=== PATIENT | male | born 1990 | race Caucasian/White ===

== ENCOUNTER 2017-04-15 08:23 | Emergency (ER) | payer MEDICAID, OTHER ==
[~2017-04-15] VITALS: Ht 182.9 cm; Wt 119.5 kg
[~2017-04-15 08:23] MED LIST: HC1C30 TOP
[2017-04-15 08:26] VITALS: Ht 182.9 cm; Wt 119.5 kg
--- NOTE | 2017-04-15 08:46 | ERD ---
ER Documentation Chief Complaint Date/Time DATE: 04/15/17 TIME: 08:42 Chief Complaint vomit this morning, + nausea HPI This is a 26-year-old male presenting to the emergency department for nausea and vomiting starting this morning. Patient states he woke up and had 3 episodes of emesis. Patient states he had yellow clear emesis with "small streaks" of blood. Patient states he is unsure if this is blood. Patient states there are small streaks of light pink. Patient states he ate hot cheetos and watermelon last night before bed. Patient denies feeling nauseas or having pain last night. Patient denies abdominal pain. Currently denies nausea. Patient states he was feeling somewhat dizzy however that has resolved now. ROS All systems reviewed and are negative except as per history of present illness. Medications Home Meds Active Scripts Ondansetron Hcl* (Zofran*) 4 Mg Tablet, 4 MG PO Q6H for NAUSEA AND/OR VOMITING, #10 TAB Prov:KO CANDELARIO NP 04/15/17 Hydrocortisone* Topical (Hydrocortisone* Topical) 1%-28.35 Gm Cream..g., 1 APPLIC TOP BID Y for ITCHING, #1 TUB Prov:SHA MAGANA 04/01/15 Allergies Allergies: Coded Allergies: No Known Allergy (Unverified , 04/15/17) PMhx/Soc Medical and Surgical Hx: pt denies Medical Hx, pt denies Surgical Hx History of Surgery: No Anesthesia Reaction: No Hx Neurological Disorder: No Hx Respiratory Disorders: No Hx Cardiac Disorders: Yes (HEART MURMUR) Hx Psychiatric Problems: No Hx Miscellaneous Medical Probl: No Hx Alcohol Use: Yes Hx Substance Use: No Hx Tobacco Use: No Physical Exam Vitals Vital Signs Date Time Temp Pulse Resp B/P Pulse Ox O2 Delivery O2 Flow Rate FiO2 04/15/17 08:26 97.5 75 18 139/87 99 Physical Exam Const: No acute distress, alert Head: Atraumatic Eyes: Normal Conjunctiva ENT: Normal External Ears, Nose and Mouth. No erythema or exudates posterior pharynx. Neck: Full range of motion..~ No meningismus. Resp: Clear to auscultation bilaterally Cardio: Regular rate and rhythm, no murmurs Abd: Soft, non tender, non distended. Normal bowel sounds Skin: No petechiae or rashes Back: No midline or flank tenderness Ext: No cyanosis, or edema Neur: Awake and alert Psych: Normal Mood and Affect Result Diagram: 04/15/17 0850 04/15/17 0850 Results 24 hrs Laboratory Tests Test 04/15/17 08:50 White Blood Count 6.010^3/ul Red Blood Count 5.4110^6/ul Hemoglobin 15.6g/dl Hematocrit 45.6% Mean Corpuscular Volume 84.3fl Mean Corpuscular Hemoglobin 28.8pg Mean Corpuscular Hemoglobin Concent 34.2g/dl Red Cell Distribution Width 12.8% Platelet Count 56579^3/UL Mean Platelet Volume 11.7fl Neutrophils % 62.8% Lymphocytes % 25.5% Monocytes % 9.9% Eosinophils % 0.8% Basophils % 0.7% Nucleated Red Blood Cells % 0.0/100WBC Neutrophils # 3.710^3/ul Lymphocytes # 1.510^3/ul Monocytes # 0.610^3/ul Eosinophils # 0.110^3/ul Basophils # 0.010^3/ul Nucleated Red Blood Cells # 0.010^3/ul Sodium Level 144mmol/L Potassium Level 4.4mmol/L Chloride Level 100mmol/L Carbon Dioxide Level 29mmol/L Anion Gap 19 Blood Urea Nitrogen 11mg/dl Creatinine 0.89mg/dl Glucose Level 105mg/dl Calcium Level 9.6mg/dl Current Medications Medications (Trade) Dose Ordered Sig/Tyler Route PRN Reason Start Time Stop Time Status Last Admin Dose Admin Ondansetron HCl (Zofran Tab) 4 mg ONCE ONCE PO 04/15/17 09:00 04/15/17 09:08 DC Famotidine (Pepcid) 20 mg ONCE ONCE PO 04/15/17 09:00 04/15/17 09:01 DC 04/15/17 09:10 Ondansetron HCl (Zofran Odt) 4 mg ONCE STAT ODT 04/15/17 09:07 04/15/17 09:08 DC 04/15/17 09:10 Procedures/[place] [id number] Radiology Main Line: [phone] DIAGNOSTIC IMAGING REPORT Patient: JENNIFER REYES : 1990 Age: 26 Sex: M MR #: [id number] [facility] #: [id number] DOS: 04/15/17 1013 Ordering MD: KO CANDELARIO NP Location: [facility] Room/Bed: PROCEDURE: XR Chest. CLINICAL INDICATION: chest pain, cough TECHNIQUE: Single frontal view of the chest was obtained COMPARISON: None FINDINGS: The heart and mediastinum are within normal limits. The lungs are clear. There is no pleural effusion or pneumothorax. RPTAT: AA IMPRESSION: No acute disease. MDM: This is a 26-year-old male presenting to emergency department for nausea and vomiting starting earlier today. Patient states he is not feeling nauseous at this moment. No active vomiting while in the ED. Patient is afebrile upon arrival to ED. No abdominal pain. Patient had 3 episodes of nonbloody nonbilious emesis earlier today. Patient has not been able to eat or drink anything today. While in ED, patent given Zofran and Pepcid p.o. Labs unremarkable. At discharge, patient reports he's had a "smoker's cough" for the past 6 months, especially in the morning. Patient denies smoking and states he would like a chest x-ray. Lung sounds clear. No cough while in the ED. No s/s of respiratory distress. Chest x-ray reviewed by radiologist as unremarkable. Low suspicion for acute bacterial infection. Patient likely has viral gastroenteritis. Patient is appropriate for outpatient management and instructed to follow up with PCP in the next 2-3 days for reassessment. Return to ED for any new or worsening symptoms. Patient verbalizes understanding. All questions answered at discharge. Departure Diagnosis: Primary Impression: Vomiting Vomiting type: unspecified Vomiting Intractability: non-intractable Nausea presence: with nausea Qualified Code: R11.2 - Non-intractable vomiting with nausea, unspecified vomiting type Condition: Stable KO CANDELARIO NP Apr 15, 2017 08:46
[2017-04-15 08:58] LABS: BASOPHILS % 0.7 % (0.0-2.0); EOSINOPHILS # 0.1 10^3/ul (0.0-0.5); EOSINOPHILS % 0.8 % (0.0-7.0); HEMATOCRIT 45.6 % (42.0-52.0); HEMOGLOBIN 15.6 g/dl (14.0-18.0); LYMPHOCYTES # 1.5 10^3/ul (0.8-2.9); LYMPHOCYTES % 25.5 % (15.0-51.0); MEAN CORPUSCULAR HEMOGLOBIN 28.8 pg (29.0-33.0); MEAN CORPUSCULAR HGB CONC 34.2 g/dl (32.0-37.0); MEAN CORPUSCULAR VOLUME 84.3 fl (82.0-101.0); MEAN PLATELET VOLUME 11.7 fl (7.4-10.4); MONOCYTE # 0.6 10^3/ul (0.3-0.9); MONOCYTES % 9.9 % (0.0-11.0); NEUTROPHIL # 3.7 10^3/ul (1.6-7.5); NEUTROPHILS % 62.8 % (39.0-77.0); PLATELET COUNT 209 10^3/UL (140-415); RED BLOOD COUNT 5.41 10^6/ul (4.70-6.10); RED CELL DISTRIBUTION WIDTH 12.8 % (11.5-14.5)
[2017-04-15] MEDS ORDERED: ONDANSETRON 4 MG TAB PO ONE (09:00)
[2017-04-15] MEDS ORDERED: FAMOTIDINE 20 MG TAB PO ONE (09:00)
[2017-04-15] MEDS ORDERED: ONDANSETRON (ODT) 4 MG TAB ODT STA (09:07)
[2017-04-15 09:41] LABS: CALCIUM 9.6 mg/dl (8.4-10.2); CREATININE 0.89 mg/dl (0.61-1.24); POTASSIUM 4.4 mmol/L (3.5-5.1)
[2017-04-15] MEDS ORDERED: ONDA4TAB8 PO (10:07)
--- NOTE | 2017-04-15 10:55 | RADRPT ---
PROCEDURE: XR Chest. CLINICAL INDICATION: chest pain, cough TECHNIQUE: Single frontal view of the chest was obtained COMPARISON: None FINDINGS: The heart and mediastinum are within normal limits. The lungs are clear. There is no pleural effusion or pneumothorax. RPTAT: AA IMPRESSION: No acute disease. .Ab White MD, MD Date Time Electronically viewed and signed by .Ab White MD, on 04/15/2017 10:55 .S/
== END 2017-04-15 11:23 | disposition home or self-care (01) ==
LOC: FTE 08:23
DX: R11.2 Nausea with vomiting, unspecified (principal)
CPT/HCPCS: 71010; 80048; 85025; Z7502

== ENCOUNTER 2017-09-18 10:25 | Emergency (ER) | END 2017-09-18 12:20 | disposition home or self-care (01) ==